=== PATIENT | male | born 1975 | race Caucasian/White ===

== ENCOUNTER 2024-07-11 22:24 | Emergency (ER) | payer OTHER, SELFPAY ==
[2024-07-11 22:32] VITALS: BP 129/80; PULSE 60; RESP 16; TEMP 36.8; O2SAT 98; BMI 21.6
--- NOTE | 2024-07-11 22:32 | ED.BACK ---
HPI - Back Pain/Injury General Time Seen by Provider: 22:32 Date Seen: 07/11/24 Chief Complaint: Back Injury/Pain Stated Complaint: flank pain Time Seen by Provider: 07/11/24 22:32 Source: patient, RN notes reviewed and old records reviewed Mode of arrival: ambulatory Limitations: no limitations History of Present Illness HPI Narrative: 49-year-old male who comes in today with abdominal pain. Patient notes bandlike pain around his upper abdomen and back all day today, was able to get to sleep but then the pain will come from sleep. Nausea with some dry heaves, no diarrhea. No urinary symptoms. No fever chills. Prior gastric bypass, does not think they took his gallbladder out at that time. Took some Zofran prior to arrival. Denies hematuria or dysuria. Related Data Home Medications ?Medication ?Instructions ?Recorded ?Confirmed No Known Home Medications 07/11/24 07/11/24 Allergies Allergy/AdvReac Type Severity Reaction Status Date / Time droperidol Allergy Severe Anaphylaxis Verified 07/11/24 22:35 Penicillins Allergy Unknown Verified 07/11/24 22:35 Exam Narrative: Exam Narrative: General: Well-developed and well-nourished, no acute distress Head: Atraumatic and normocephalic Eyes: Pupils are equal reactive, extraocular motions intact, conjunctiva clear ENT: External nose and ears are normal, posterior pharynx without erythema or exudate Neck: No midline cervical tenderness, full spontaneous range of motion the neck, trachea midline, no adenopathy Heart: Regular rate and rhythm no murmurs or thrills Lungs: Clear to auscultation bilaterally without wheezes or crackles Abdomen: Soft, diffuse upper abdominal tenderness worse in the epigastrium, nondistended with active bowel sounds Musculoskeletal: No tenderness, deformity, or edema Neurologic: Awake, alert, and oriented x3, no gross focal neurologic deficits, cranial nerves intact as tested Psych: Mood and affect are appropriate Skin: No rashes Const: Vital Signs, click to edit/add: Vital Signs - 24 hr 07/11/24 22:32 Temperature 98.2 F Pulse Rate [Pulse Oximeter] 60 Respiratory Rate 16 Blood Pressure [Ri ght Upper Arm] 129/80 Pulse Oximetry 98 Oxygen Delivery Me thod Room Air Course Course ED Course: Reviewed most recent telemedicine visit from June 20 for anxiety related to multiple medical diagnoses, including prior gastric bypass, depression. Patient with prior gastric bypass, Le fundoplication, TORE procedure on March 31 at [facility]. Patient presents with diffuse upper abdominal pain, nausea and dry heaves tonight. On exam, vital is stable, appears comfortable, epigastric tenderness. Labs and CT scan are ordered. Reevaluation(s) Time of Reevaluation #1: 23:26 Reevaluation #1: Labs and fell interpreted by me with normal CBC, urinalysis without evidence for infection. CT abdomen pelvis independently interpreted by me demonstrates small amount of ascites, no free air. Time of Reevaluation #2: 23:46 Reevaluation #2: Reviewed radiology interpretation CT scan: IMPRESSIONS: 1. Diffuse ground-glass infiltration of the mesentery is present with increased amounts of fat present within the mesentery, displacing small-bowel loops into the anterior and lateral left flank. The differential diagnosis includes mesenteric panniculitis, liposarcoma, or treated lymphoma. 2. A small amount of pelvic ascites is present. Time of Reevaluation #3: 00:04 Reevaluation #3: See updated patient with findings and plan, stable for discharge. Vital Signs Vital signs: Initial Vital Signs Temperature 98.2 F 07/11/24 22:32 Temperature Source Temporal Artery Scan 07/11/24 22:32 Pulse Rate 60 07/11/24 22:32 Respiratory Rate 16 07/11/24 22:32 Blood Pressure 129/80 07/11/24 22:32 Blood Pressure Mean 96 07/11/24 22:32 Blood Pressure Position Sitting 07/11/24 22:32 Pulse Oximetry 98 07/11/24 22:32 Oxygen Delivery Method Room Air 07/11/24 22:32 Vital Signs Temperature 98.2 F 07/11/24 22:32 Pulse Rate 60 07/11/24 22:32 Respiratory Rate 16 07/11/24 22:32 Blood Pressure 129/80 07/11/24 22:32 Pulse Oximetry 98 07/11/24 22:32 Oxygen Delivery Method Room Air 07/11/24 22:32 Temperature 98.2 F 07/11/24 22:32 Pulse Rate 60 07/11/24 22:32 Respiratory Rate 16 07/11/24 22:32 Blood Pressure 129/80 07/11/24 22:32 Pulse Oximetry 98 07/11/24 22:32 Oxygen Delivery Method Room Air 07/11/24 22:32 MDM - Back Pain/Injury Lab Data Labs: Lab Results 07/11/24 07/11/24 Range/Units 22:30 22:54 WBC 8.30 (4.50-11.00) K/uL RBC 4.23 L (4.30-5.90) m/uL Hgb 13.3 L (13.5-17.5) gm/dL Hct 37.7 (37.0-53.0) % MCV 89 (80-100) fL MCH 31 (26-34) pg MCHC 35 (32-36) gm/dL RDW Coeff of Gigi 12.7 (11.5-15.5) % Plt Count 194 (140-440) K/uL Neut % (Auto) 81.3 H (42.0-72.0) % Lymph % (Auto) 11.0 L (20-44) % [place] % (Auto) 5.5 (0.0-11.0) % Eos % (Auto) 1.2 (0.0-7.0) % Baso % (Auto) 0.6 (0.0-3.0) % Neut # (Auto) 6.70 (1.7-7.0) K/uL Lymph # (Auto) 0.90 (0.90-2.90) K/uL [place] # (Auto) 0.50 (0.00-0.90) K/UL Eos # (Auto) 0.10 (0.00-0.50) K/uL Baso # (Auto) 0.05 (0.00-0.30) K/uL Abs Immat Gran (auto) 0.03 (0.00-0.30) K/uL Imm/Tot Granulo (auto) 0.4 % Sodium 138 (135-149) mmol/L Potassium 4.2 (3.6-5.1) mmol/L Chloride 106 (96-114) mmol/L Carbon Dioxide 23 (20-32) mmol/L Anion Gap 9 (7-15) mEq/L BUN 20 (7-30) mg/dL Creatinine 0.8 (0.5-1.5) mg/dL Estimated Creat Clear 92.14 Estimated GFR 108 ml/min Glucose 92 (60-115) mg/dL Calcium 9.1 (8.4-10.6) mg/dL Magnesium 2.0 (1.5-2.6) mg/dL Total Bilirubin 1.1 (0.1-1.5) mg/dL Direct Bilirubin 0.3 (0.0-0.5) mg/dL AST 36 H (12-35) U/L ALT 48 (4-50) U/L Alkaline Phosphatase 57 (40-150) U/L Total Protein 7.1 (6.0-8.3) g/dL Albumin 4.5 (3.3-5.0) g/dL Lipase 174 (23-300) U/L Urine Color Yellow (Yellow) Urine Appearance Clear (Clear) Urine pH 6.0 (5.0-8.5) Ur Specific [place] 1.020 (1.000-1.030) Urine Protein Negative (Negative) Urine Glucose (UA) Negative (Negative) Urine Ketones Negative (Negative) Urine Blood Negative (Negative) Urine Nitrite Negative (Negative) Urine Bilirubin Negative (Negative) Urine Urobilinogen 0.2 (0.2-1.0) Ur Leukocyte Esterase Negative (Negative) Urine RBC 0-2 (0-2) Urine WBC 0-2 (0-5) Ur Squamous Epith Cells Few (None-Few) Urine Bacteria None (None) Discharge Plan Discharge Clinical Impression: Mesenteric panniculitis Patient Disposition: Home, Self-Care Condition: Stable Additional Instructions: Your CT scan today shows inflammation of the mesentery, the tissue that helps hold intestines in place in the abdomen. Call your surgeon in the morning to discuss further treatment. Start taking a stool softener such as Colace/docusate while your taking pain medications If your pain returns or your having uncontrolled vomiting, fevers, or other concerns, follow-up at at the hospital where you have had your prior abdominal surgeries Activity Level: Activity as Tolerated Discharge Diet: Regular Prescriptions: No Action No Known Home Medications Follow Up/Referrals: Provider,Not a Local [Primary Care Provider] - Stand Alone Forms: [employer] Info Instructions
--- NOTE | 2024-07-11 22:53 | CRLHL7_ITS ---
For Patients: As a result of the Century Cures Act, medical imaging exams and procedure reports are released immediately into your electronic medical record. You may view this report before your referring provider. If you have questions, please contact your health care provider. INDICATION: Flank pain, back pain, epigastric pain, upper abdominal pain TECHNIQUE: CT Abdomen and pelvis with i.v. contrast. Coronal and sagittal reformats were obtained. CONTRAST: 64 mL Isovue 370 COMPARISON: None FINDINGS: Lower chest: Unremarkable. Liver: Unremarkable. Spleen: Unremarkable. Pancreas: Unremarkable. Gallbladder: Unremarkable. Kidney: Unremarkable. No kidney or ureteral stones or obstruction seen. Adrenal: Unremarkable. Bowel: Previous gastric bypass surgery is noted. Diffuse ground-glass infiltration of the mesentery is present with increased amounts of fat present within the mesentery, displacing small-bowel loops into the anterior and lateral left flank. The appendix is not identified. Vascular: Unremarkable. Lymph: Unremarkable. Peritoneum: Unremarkable. No pneumoperitoneum is seen. A small amount of pelvic ascites is present. Pelvis: Mild prostatic enlargement is seen. Soft tissue: Unremarkable. Bone: Unremarkable for age. IMPRESSIONS: 1. Diffuse ground-glass infiltration of the mesentery is present with increased amounts of fat present within the mesentery, displacing small-bowel loops into the anterior and lateral left flank. The differential diagnosis includes mesenteric panniculitis, liposarcoma, or treated lymphoma. 2. A small amount of pelvic ascites is present. Dictated by Ugo Jamil MD @ 07/11/2024 11:43:56 PM Please note that all CT scans at this facility use dose modulation, iterative reconstruction, and/or weight-based dosing when appropriate to reduce radiation dose to as low as reasonably achievable. Dictated by: Ugo Jamil MD @ 07/11/2024 23:44:01 (Electronically Signed)
[2024-07-11 22:55] LABS: Appearance Urine Clear (Clear); Bilirubin Urine Negative (Negative); Blood Urine Negative (Negative); Color Urine Yellow (Yellow); Glucose Urine Negative (Negative); Ketones Urine Negative (Negative); Leukocyte Esterase Urine Negative (Negative); Nitrite Urine Negative (Negative); Protein Urine Negative (Negative); Urobilinogen Urine 0.2 (0.2-1.0)
--- OUTSIDE RECORDS SUMMARY | 2024-07-11 22:56 | XMS_ITS | Encounter Summary ---
Author Organization [facility] Address [address] [place] [address] Care Team Providers Care Chief Of Harbor Patrol Name Role Phone Buster Brush PA-C Primary Care Provider [phone]- [phone] Encounter Details Date Type Department Care Team (Late st Contact Info) Description 01/20/2014 Scanned History External to Transferred Record, Provider [facility] Social History Tobacco Use Types Packs/Day Years Used Date Smoking Tobacco: Never Assessed Sex and Gender Information Value Date Recorded Sex Assigned at Not on file Legal Sex Male 4:49 AM CDT Gender Identity Not on file Sexual Orientation Not on file documented as of this encounter Plan of Treatment Not on file documented as of this encounter Visit Diagnoses Not on filedocumented in this encounter Care Teams Chief Of Harbor Patrol Relationship Specialty Start Date End Date Buster Brush PA-C [address] [place] [address] PCP - General Physician Art Glass Designer 08/21/20 documented as of this encounter
--- OUTSIDE RECORDS SUMMARY | 2024-07-11 22:56 | XMS_ITS | Encounter Summary ---
Author Organization [facility] Address [address] [place] [address] Care Team Providers Care Furnace Tapper Name Role Phone Huma Mathur M.D. Primary Care Provider [phone]- [phone] Reason for Visit * Reason Comments Med Refill Encounter Details Date Type Department Care Team (Late st Contact Info) Description 04/28/2024 Refill Division of Gastroenterology in [place], [place] [address] [place] [phone] Darlene Loera MPAS, P.A.-C. [address] [place] [phone] Med Refill Social History Tobacco Use Types Packs/Day Years Used Date Smoking Tobacco: Never Smokeless Tobacco: Former Chew Alcohol Use Standard Drinks/Week Comments Not Currently 0 (1 standard drink = 0.6 oz pur e alcohol) [facility] Utilities Answer Date Recorded In the past 12 months has [employer], gas, oil, or water adjust threatened to shut off services in your home? No 08/10/2023 PHQ-2 Answer Date Recorded PHQ-2 Score 2 04/19/2024 Exercise Vital Sign Answer Date Recorde d On average, how many days pe r week do you engage in moderate to strenuous exercise (like a brisk walk)? 3 days Minutes of Exercise per Session Not on file 08/10/2023 Hunger Vital Sign Answer Date Recorded Within the past 12 months, y ou worried that your food would run out before you got the money to buy more. Never true 08/10/19 24 Within the past 12 months, t he food you bought just didn't last and you didn't have money to get more. Never true 08/10/2023 PRAPARE - Transportation Answer Date Re corded In the past 12 months, has l ack of transportation kept you from medical appointments or from getting medications? No 05/2023 In the past 12 months, has l ack of transportation kept you from meetings, work, or from getting things needed for daily living? No 08/10/2023 Depression Answer Date Recor ded PHQ-9 Total Score (max 27) 2 04/19 Nutrition Answer Date Recorded On average, how many serving s of fruits and vegetables do you eat per day (serving size is equal to 1 cup or approximately the size of a tennis ball)? 3-5 08/10/2023 Dental Answer Date Recorded Dental: Regular Dentist Yes 08/10/19 Employment Answer Date Recorded Employment status Employed and actively working without restrictions 08/10/2023 Housing Stability Answer Date Recorded What is your living situation today? I have a [facility] place to live 08/10/2023 Sex and Gender Information Value Date Recorded Sex Assigned at Male 08/10/2023 6:15 PM CDT Legal Sex Male 2:06 PM [employer] Gender Identity Male 08/10/2023 6:15 PM CDT Sexual Orientation Straight 08/10/2023 6: 15 PM CDT documented as of this encounter Plan of Treatment Not on file documented as of this encounter Visit Diagnoses Not on filedocumented in this encounter Additional Health Concerns Assessment Noted Time PHQ-9 Depression Total Score: 2 04/19/19 25 7:25 AM COTTON [employer] P[employer]ER documented as of this encounter Care Teams Furnace Tapper Relationship Specialty Start Date End Date Huma Mathur M.D. [address] [place] [phone] PCP - General Family Medicine 02/02/24 documented as of this encounter
--- OUTSIDE RECORDS SUMMARY | 2024-07-11 22:56 | XMS_ITS ---
Author Organization [facility] Address [address] [place] [address] Care Team Providers Care Certified Orthotist Practice Manager Name Role Phone Huma Mathur M.D. Primary Care Provider [phone]- [phone] Bariatrics Program Status:Closed (Closed) Start date:01/13/2024 End date:05/31/2024 Close reason:Incorrect referral Continued Care and Services Coordination
--- OUTSIDE RECORDS SUMMARY | 2024-07-11 22:56 | XMS_ITS | Clinical Summary ---
Author Organization [facility] hospital Address [address] [facility] [place] [address] Care Team Providers Care Color Blender Name Role Phone Buster Brush PA-C Primary Care Provider [phone] Source Comments You are receiving this document as you are listed as the primary care provider,follow-up provider, or the patient has been referred to you for consultation.This is in compliance with the Medicare and[facility] EHR Incentive Program,which states Providers who transition their patient to another setting of careor provider of care or refers their patient to another provider of care shouldprovide summary care record for each transition of care or referral. [facility] Allergies Active Allergy Reactions Criticality Noted Date Comments Droperidol Other, see comments 02/12/2023 Penicillins Unknown 02/24/2020 Medications * This document contains information received from the source organization and may not represent a complete record from that organization. ferrous sulfate 325 (65 Fe) MG tablet Take 1 Tablet (325 mg) by mouth daily with breakfast. 90 Tablet 3 3 Active ascorbic acid (VITAMINC) 500 MG tablet Take 1 Tablet (500 mg) by mouth daily. 90 Tablet 3 3 Active blood glucose (ACCU-CHEK SMARTVIEW) test stripIndications: Reactive hypoglycemia (HRC) Use to test two times a day. 100 Strip 11 4 Active lancetsIndication s:Reactive hypoglycemia (HRC) Use 1 Each to test two times a day. 100 Each 11 4 Active multivitamin (THERAGRAN) tablet Take 1 Tablet by mouth daily. Active hydrOXYzine HCl (ATARAX) 25 MG tabletIndications :Anxiety (HRC) TAKE 1 TABLET(25 MG) BY MOUTH THREE TIMES DAILY NEEDED FOR ANXIETY 30 Tablet 4 Active amitriptyline (ELAVIL) 10 MG tabletIndications :Anxiety (HRC),Current mild episode of major depressive disorder without prior episode (HRC) TAKE 1 TO 5 TABLETS(10 TO 50 MG) BY MOUTH DAILY AT BEDTIME 150 Tablet 2 4 Active Continuous Glucose Sensor (FREESTYLE ERNIE 3 PLUS SENSOR) MISCIndications:H ypoglycemia (HR) USE DIRECTED FOR CONTINUOUS BLOOD GLUCOSE MONITORING. REPLACE SENSOR EVERY 15 DAYS 7 Each 3 4 Active Active Problems Patient Care Coordination No te Formatting of this note migh t be different from the original. [facility] Care Management Hansel Russ Is meeting his goals and self-reliant. Planned surgery is 03/04/2022. Member has Case management phone# if questions/resources or support needed prior to or after surgery. Case closed/self reliant. Member has completed advance directive and will bring to next appointment to have it scanned into EMR. Darcy Brink RN 01/27/2022, 11:22 AM [phone] [facility] Care Management [facility] and Case Management: Hansel Russ identified due to planned gastric bypass and hiatal hernia repair surgery on 03/04/2022. Working with patient towards understanding of benefits, avoiding dehydration and following bariatric education manual. My role is to be available to provide in-between visit support, reinforcement of the plan of care, additional education and resources, and assistance navigating health plan benefits. Darcy Brink RN 12/24/2021, 5:45 PM [phone] Problem Noted Date Diagnosed Date Adjustment disorder with mixed anxiety and depre ssed mood 03/31/2024 History of multiple concussions 02/19/2023 Anxiety 01/27/2023 Severe episode of recurrent major depressive disorder, without psychotic features 01/27/2023 Spasm of abdominal muscles of right side 023 History of Miriam-en-Y gastric bypass 03/04/2022 Overview (03/04/2022): Robotic assisted laparoscopic takedown of Le fundoplication, recurrent hiatal hernia repair with mesh, Miriam-en-Y gastric bypass, upper endoscopy Intractable migraine with aura without status mi grainosus 10/26/2020 BONNIE (obstructive sleep apnea) 07/09/2020 Overview (07/07/2022): Setting: CPAP 14 cmH20 Supplied by: [facility] PSG done: 06-24-21 T [facility], 07-07-21 [facility] (Titration) RDI/SURAJ 59 Lowest O2 Sat: 79% Benign neoplasm of descending colon 12/15/2017 Polyp of colon 11/19/2017 Hemorrhoids 11/19/2017 Chronic diarrhea 10/21/2017 Migraine headache 11/19/2016 Patellofemoral disorders, right knee Resolved Problems Problem Noted Date Diagnosed Date Resolved Date History of fundoplication 04/01/2021 Essential (primary) hypertension 07/09/2020 07/17/2023 Noninfectious gastroenteritis 10/21/2017 03/04/2022 Neck pain 12/22/2016 02/26/2017 Dizziness 12/22/2016 02/26/2017 GERD (gastroesophageal reflux disease) 04/08/2016 08/20/2022 Obesity (BMI 30-39.9) 2024 Overview (03/31/2024): This problem was marked as resolved by a user in a SmartForm. Immunizations Immunization Administration Dates Next Due DT Ped 09/26/1986 DTP 05/31/1986, 6,1974,1974,1974 Flu Vac Preserv Free (3+yrs) 01/24/2008,01/18/20 05 Fluzone Qiv Multidose Vial 0 .25 (6-35 Mos) 12/12/2014,01/06/2014 Influenza LAIV3 2-49 years (Flumist) 11/27/2008 MMR 02/13/1988 Moderna Monovalent 12+ 03/06/2021,06/06/2020,04/2020 OPV, Trivalent (Orimune or tOPV) 987,1974,1974,1974 Td, Preservative Free 10/07/1998 Tdap 05/18/2017,01/18/2008 Family History Medical History Relation Name Comments Diabetes, Type II Father Obesity Father Obesity Mother Relation Name Status Comments Father Alive Mother Alive Maternal Grandfather (Age 65) Maternal Grandmother (Age 56) Paternal Grandfather (Age 64) Paternal Grandmother (Age 94) Sister Alive Social History Tobacco Use Types Packs/Day Years Used Date Smoking Tobacco: Never Smokeless Tobacco: Never Alcohol Use Standard Drinks/Week Comments Not Currently 0 (1 standard drink = 0.6 oz pur e alcohol) PHQ-2 Answer Date Recorded PHQ-2 Score 2 03/30/2024 Sex and Gender Information Value Date Recorded Sex Assigned at Not on file Legal Sex Male 4:49 AM CDT Gender Identity Not on file Sexual Orientation Not on file 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 Not on file Not on file Not on chiquita e Last Filed Vital Signs Vital Sign Reading Time Taken Comments Blood Pressure 115/78 07/22/2023 2:45 PM CDT Pulse 62 07/22/2023 2:45 PM CDT Temperature 36.8 C (98.2 F) 03/05/2023 11:50 AM RACE BOARD ATTENDANT Respiratory Rate 14 07/22/2023 2:45 PM CDT Oxygen Saturation 100% 07/22/2023 2:45 PM CDT Inhaled Oxygen Concentration - - Weight 61.7 kg (136 lb) 07/29/2023 12:54 PM CDT Height 167.6 cm (5' 6) 07/29/2023 12:54 PM CDT Body Mass Index 21.95 07/29/2023 12:54 PM CDT Plan of Treatment Health Maintenance Due Date Last Done Comments PSA Screening Discussion 1975 HepB Vaccine (1) 1993 COVID-19 Vaccine ( season) 2023 03/06/2021, 06/06/2020, 05/08/2020 Adult Preventive Visit 03/30/2024 03/30/2023 Pneumococcal Vaccine 50+ Yrs (1 of 1 - PCV) 2024 Zoster/Shingles Vaccine (1 of 2) 2024 Prediabetes: HGBA1C 06/07/2024 06/08/2023, 04/02/2023, 09/12/2021, Additional history exists Influenza Vaccine (Season Ended) 2024 12/12/2014, 01/06/2014, 11/27/2008, Additional history exists DTaP/Tdap/Td Vaccine (10 - Tdap) 05/19/2027 05/18/2017, 01/18/2008, 10/07/1998, Additional history exists Cholesterol 04/02/2028 04/02/2023, 07/0 09/2021, 07/10/2020 Colonoscopy 03/05/2030 03/05/2023 IPV (Polio) Vaccine Completed 05/31/1986, 1974, 1974, Additional history exists HIV Screening (Preventive Services) Completed 04/02/2023 Hep C Screening (Preventive Services) Completed 04/02/2023 HepA Vaccine Aged Out No longer eligi ble based on patient's age to complete this topic Hib Vaccine Aged Out No longer eligi ble based on patient's age to complete this topic MCV4 Vaccine Aged Out No longer eligi ble based on patient's age to complete this topic Meningococcal B Vaccine Aged Out No l onger eligible based on patient's age to complete this topic Medical Devices Implanted Type Area Assistant Food Service Director Device Identifier Shelf Expiration Date Model / Serial / Lot Mesh Bio-A - [id number] Implanted:Qty : 1 on 03/04/2022 by Jadiel Goff MD at [facility] DEVICE N/A: ABD[employer]EN [employer] 10/21/2024 [id number] / [id number] / Procedures Procedure Name Priority Date/Time Associated Diagnosis Comments HGB A1C Routine 06/08/2023 9:00 AM CDT Hypoglycemia after GI (gastrointestinal) surgery HIV 1/2 AG/AB 4TH GEN Routine 04/02/2023 9:35 AM RACE BOARD ATTENDANT Encounter for screening for human immunodeficiency virus (HIV) HEPATITIS C ANTIBODY, WITH REFLEX Routine 04/02/2023 9:35 AM RACE BOARD ATTENDANT Need for hepatitis C screening test LIPID PANEL & DIRECT LDL (IF NEEDED) Routine 04/02/2023 9:35 AM RACE BOARD ATTENDANT Lipid screening ENDOSCOPY, COLON, SCREENING/DIAGNOS TIC Routine 03/05/2023 11:10 AM RACE BOARD ATTENDANT Chronic diarrhea from Last 3 Months or Most Recently Relevant to Health Maintenance Results * Hgb A1C (06/08/2023 9:00 AM CDT) Hemoglobin A1C 4.5 <=5.6 % 06/08/2023 11:48 AM CDT [facility] Estimated Average Glucose (Calc) 82 < 117 mg/dL 06/08/2023 11:48 AM CDT [facility] Comment:Estimated average gl ucose (eAG) converts A1c into glucose units (mg/dL) and estimates average glucose over the past approximately 3 months. The eAG reference interval (<117 mg/dL) corresponds to an A1c of <5.7%. Blood Venipuncture / Unknown 06/08/2023 9:00 AM CDT 06/08/2023 9:00 AM CDT Emeterio Rousseau MD LAB_1 Final R esult Performing Organization Address City/[facility]/ZIP Co de Phone Number [facility] [address] * HIV 1/2 Ag/Ab 4th Generation (04/02/2023 9:35 AM RACE BOARD ATTENDANT) HIV 1/2 Antigen/Antib jed (4th generation) Negative (Non Reactive) Negative (Non Reactive) 04/02/2023 1:55 PM RACE BOARD ATTENDANT [facility] Comment:HIV-1 p24 Antigen an d HIV-1/HIV-2 Antibody not detected Blood Venipuncture / Unknown 04/02/2023 9:35 AM RACE BOARD ATTENDANT 04/02/2023 9:35 AM RACE BOARD ATTENDANT Tanisha Julien PA-C LAB_1 Final Resul t [facility] [address] * Lipid Panel and Direct LDL(If Needed) (04/02/2023 9:35 AM RACE BOARD ATTENDANT) Cholesterol 151 0 - 199 mg/dL 04/02/2023 11:00 AM [facility] [address] [facility] Triglyceride 70 <=149 mg/dL 04/02/2023 11:00 AM RACE BOARD ATTENDANT [facility] [address] [facility] HDL Cholesterol 64 >=40 mg/dL 11:00 AM [facility] [address] [facility] LDL, Calculated 73 <130 mg/dL 11:00 AM RACE BOARD ATTENDANT [facility] [address] [facility] Non HDL Chol, Calculated 87 <=159 mg/dL 04/02/2023 11:00 AM [facility] [address] [facility] Cholesterol/HDL Ratio 2.4 <=5.0 04/02/2023 11:00 AM [facility] [address] [facility] Hours Fasting 0.0 8 - 12 Hours 04/02/2023 11:00 AM [facility] [address] [facility] Comment:Patient has indicate d a non-fasting status. Blood Venipuncture / Unknown 04/02/2023 9:35 AM RACE BOARD ATTENDANT 04/02/2023 9:35 AM RACE BOARD ATTENDANT us Tanisha Julien PA-C LAB_1 Final Resul t Performing Organization Address City/State/[facility] de Phone Number [facility] [address] [facility] [address] [place] [address], [facility] [phone] * Hepatitis C Antibody, with Reflex (04/02/2023 9:35 AM RACE BOARD ATTENDANT) Hepatitis C Antibody Negative (Non Reactive) Negative (Non Reactive) 04/02/2023 1:55 PM RACE BOARD ATTENDANT [facility] Comment:Antibodies to HCV no t detected. Does not exclude the possiblity of exposure to HCV. Blood Venipuncture / Unknown 04/02/2023 9:35 AM RACE BOARD ATTENDANT 04/02/2023 9:35 AM RACE BOARD ATTENDANT us Tanisha Julien PA-C LAB_1 Final Resul t [facility] [address] [place] [address], [facility] * Endoscopy, colon, diagnostic (03/05/2023 11:10 AM RACE BOARD ATTENDANT) Anatomical Region Laterality Modality Other 03/05/2023 11:1 0 AM RACE BOARD ATTENDANT Narrative 03/05/2023 11:10 AM RACE BOARD ATTENDANT Patient Name: Hansel Russ Procedure Date: 03/05/2023 11:10 AM Date of : 1975 Admit Type: Outpatient Age: 47 Gender: Male Note Status: Finalized Attending MD: Mariel Mauricio MD, Procedure: Colonoscopy Indications: Clinically significant diarrhea of unexplained origin Providers: Mariel Mauricio MD, Leann Tapia RN Referring MD: Calvin Potts MD Medicines: Propofol per Anesthesia Complications: No immediate complications. Procedure: After I obtained informed consent, the scope was passed under direct vision. Throughout the procedure, the patient's blood pressure, pulse, and oxygen saturations were monitored continuously. The [id number] was introduced through the anus and advanced to 7 cm into the ileum. The colonoscopy was performed without difficulty. The patient tolerated the procedure well. The quality of the bowel preparation was good. Anatomical landmarks were photographed. Findings: The perianal and digital rectal examinations were normal. The terminal ileum appeared normal. Normal mucosa was found in the entire colon. Biopsies for histology were taken with a cold forceps from the entire colon for evaluation of microscopic colitis. The entire examined colon appeared normal on direct and retroflexion views. Impression: - The examined portion of the ileum was normal. - Normal mucosa in the entire examined colon. Biopsied. - The entire examined colon is normal on direct and retroflexion views. Recommendation: - Discharge patient to home. - Await pathology results. - Repeat colonoscopy in 7 years for surveillance (history of tubular adenoma). - Return to GI clinic. Procedure Code(s): --- Professional --- 07991, Colonoscopy, flexible; with biopsy, single or multiple Diagnosis Code(s): --- Professional --- R19.7, Diarrhea, unspecified CPT copyright 2021 [employer]. All rights reserved. The codes documented in this report are preliminary and upon him coder review may be revised to meet current compliance requirements. Mareil Mauricio MD 03/05/2023 11:48:50 AM This document has been electronically signed. Number of Addenda: 0 Note Initiated On: 03/05/2023 11:10 AM Endoscopy Report Procedure Note Mariel Mauricio MD - 03/05/2023 Patient Name: Hansel Russ Procedure Date: 03/05/2023 11:10 AM Date of : 1975 Admit Type: Outpatient Age: 47 Gender: Male Note Status: Finalized Attending MD: Mariel Mauricio MD, Procedure: Colonoscopy Indications: Clinically significant diarrhea of unexplained origin Providers: Mariel Mauricio MD, Leann Tapia RN Referring MD: Calvin Potts MD Medicines: Propofol per Anesthesia Complications: No immediate complications. Procedure: After I obtained informed consent, the scope was passed under direct vision. Throughout the procedure, the patient's blood pressure, pulse, and oxygen saturations were monitored continuously. The [id number] was introduced through the anus and advanced to 7 cm into the ileum. The colonoscopy was performed without difficulty. The patient tolerated the procedure well. The quality of the bowel preparation was good. Anatomical landmarks were photographed. Findings: The perianal and digital rectal examinations were normal. The terminal ileum appeared normal. Normal mucosa was found in the entire colon. Biopsies for histology were taken with a cold forceps from the entire colon for evaluation of microscopic colitis. The entire examined colon appeared normal on direct and retroflexion views. Impression: - The examined portion of the ileum was normal. - Normal mucosa in the entire examined colon. Biopsied. - The entire examined colon is normal on direct and retroflexion views. Recommendation: - Discharge patient to home. - Await pathology results. - Repeat colonoscopy in 7 years for surveillance (history of tubular adenoma). - Return to GI clinic. Procedure Code(s): --- Professional --- 36328, Colonoscopy, flexible; with biopsy, single or multiple Diagnosis Code(s): --- Professional --- R19.7, Diarrhea, unspecified CPT copyright 2021 [employer]. All rights reserved. The codes documented in this report are preliminary and upon him coder review may be revised to meet current compliance requirements. Mariel Mauricio MD 03/05/2023 11:48:50 AM This document has been electronically signed. Number of Addenda: 0 Note Initiated On: 03/05/2023 11:10 AM Endoscopy Report Calvin Potts MD [facility] PROCEDURE ORDERABLES Final Result from Last 3 Months or Most Recently Relevant to Health Maintenance Insurance SELF INSURED SELF INSURED Advance Directives Documents on File Type Date Recorded Patient Degreasing Solution Reclaimer Expl anation HEALTHCARE DIRECTIVE 01/20/2022 HEALTHC ARE DIRECTIVE 01/20/2022 * Full Code (Latest Code Status on File) Date Activated Date Inactivated Comments 03/13/2022 1:12 AM 03/13/2022 4:15 PM * Full Code Date Activated Date Inactivated Comments 03/04/2022 3:48 PM 03/06/2022 2:47 PM Care Teams Color Blender Relationship Specialty Start Date End Date Buster Brush PA-C [address] [place] [address] PCP - General Physician Communications Tower Climber 08/21/20
--- OUTSIDE RECORDS SUMMARY | 2024-07-11 22:56 | XMS_ITS | Encounter Summary ---
Author Organization [facility] Address [address] [place] [address] Care Team Providers Care Toe Puller Name Role Phone Buster Brush PA-C Primary Care Provider Encounter Details Date Type Department Care Team (Late st Contact Info) Description 08/05/2016 Scanned History External to Transferred Record, Provider [facility] Social History Tobacco Use Types Packs/Day Years Used Date Smoking Tobacco: Never Alcohol Use Standard Drinks/Week Comments Yes 0 (1 standard drink = 0.6 oz pur e alcohol) occassional Sex and Gender Information Value Date Recorded Sex Assigned at Not on file Legal Sex Male 4:49 AM CDT Gender Identity Not on file Sexual Orientation Not on file documented as of this encounter Plan of Treatment Not on file documented as of this encounter Visit Diagnoses Not on filedocumented in this encounter Care Teams Toe Puller Relationship Specialty Start Date End Date Buster Brush PA-C [address] [place] [address] PCP - General Physician Lens Engraver 08/21/20 documented as of this encounter
--- OUTSIDE RECORDS SUMMARY | 2024-07-11 22:56 | XMS_ITS | Encounter Summary ---
Author Organization [facility] Address [address] [place] [address] Care Team Providers Care Batch Plant Operator Name Role Phone Huma Mathur M.D. Primary Care Provider [phone]- [phone] Reason for Visit * Outpatient (Routine) - Closed Specialty Diagnoses / Procedures Referred By Contac t Referred To Contact Integrative Medicine Diagnoses Anxiety Disorder Unspecified Cally Lorenzo APRN, C.N.P., D.N.P. [address] [place] [phone] Phone: tel: fax: [facility] Referral ID Status Reason Start Date Expiration Date Visits Re quested Visits Authorized [id number] Closed 03/17/2024 09/16/2025 1 1 Encounter Details Date Type Department Care Team (Late st Contact Info) Description 06/20/2024 5:00 PM CDT Telemedicine Integrative Medicine and Health in [place], [place] [address] [place] [id number] Cinthya Mendoza M.A., L.P.C.C. [address] [place] [phone] Anxiety Disorder Unspecified Social History Tobacco Use Types Packs/Day Years Used Date Smoking Tobacco: Never Smokeless Tobacco: Former Chew Quit: 03/09/2001 Alcohol Use Standard Drinks/Week Comments Not Currently 0 (1 standard drink = 0.6 oz pur e alcohol) [facility] Utilities Answer Date Recorded In the past 12 months has th e electric, gas, oil, or water [employer] threatened to shut off services in your [...] your living situation today? 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 - 06/20/2024 5:00 PM CDT Referral Source: Cally Lorenzo APRN, C.N.P., D.N.P. [address] [place] [address] SUBJECTIVE Chief Complaint: Mr. Russ is being seen in the Integrative Medicine and Health, Section of General Internal Medicine. History of Presenting Illness: Mr. Russ is a pleasant 49 y.o. male presenting for an individual Stress Management and Resiliency Training (SMART) consultation, conducted via real-time audio/video technology, at [place], [place] site to the patient in the patient's home. Mr. 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 See Dr. Huma Mathur's excellent note of March 18, 2024. 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 See Dr. Raquel Mancuso's excellent note of April 15, 2024. Mr. Russ said he is undergoing EMDR with his psychologist to help him with PTSD. Mr. Russ his first in 2011 after 10 years of marriage. He said the divorce was very difficult. They had two daughters from this relationship: 25-year-old Anni and 27-year-old Cori. He is estranged from his oldest daughter. He his second Suzie in 2018 and now hehas two stepsons. Mr. Russ appears motivated to incorporate his resiliency skills into daily practice. Review of Systems Appearance/Behavior: Well groomed, Good eye contact. No abnormal movements noted. Consciousness/Orientation: Alert. Oriented to person, place, date, and time. Cognition/Memory: Demonstrates good recent and remote memory through conversation and history. Cooperative/Reliability: Cooperative, reliable informant. Mood/Affect: Anxious mood with full range affect. Speech/Language: Regular rate, rhythm, volume, and tone. Thought form: Linear, goal-directed, and associations are clear and connected. Thought content: No delusions described or elicited, no other abnormalities of thought content. Perception: No hallucinations, illusions, or other perceptual disturbances. Attention/Concentration: No apparent abnormalities in attention or concentration. Knowledge: Knowledge base within normal limits. Abstraction: Abstraction abilities within normal limits. Judgment: Intact. Insight/Motivation: Good insight/motivation. Suicidality/Assaultiveness: No suicidality, homicidality, or passive wish. ASSESSMENT / PLAN Stress Management and Resiliency Training (SMART) Mr. Russ is experiencing a high level of stress at the current time. We discussed a structured plan based on an understanding of neuroscience, including emerging literature on the brain???s default and focused modes. Mr. Russ???s stress can be triggered by (1) demand/resource imbalance, (where far more is expectedof a person than they can handle); (2) lack of control, and/or (3) lack of meaning. The best way tomanage stress is to identify stressors, eliminate them (if possible), focus on what can be controlled, and/or reframe the stressors. We discussed activities that engage our brain???s higher cortical centers, also known as the focused mode, by engaging higher order principles of gratitude, compassion, acceptance, higher meaning, and forgiveness. The goal of this program is that with adherence over time, a person's default network (with its irrational fears, prejudices, and bias) will be replaced by these higher principles, sothat even when on autopilot or engaging the default network, a person will effortlessly live fromtheir higher principles. With consistent practice of SMART over time, life can become an expressionof a person???s ???highest self???. I provided the patient with the Stress Management and Resiliency Training (SMART) Program handout [address] Kenn Muhammad and [place] Resilience Handout 1074-734. I also recommend Calm and ZIZO appsfor phone and computer use, as well as the book No More Sleepless Nights by Nicholas Salazar, Ph.D andYvonne Alberts, Ph.D. Some Suggested Daily Recommendations: a. Morning Gratitude: Mr. Russ is recommended to wake up every morning and begin each day practicing a gratitude exercise. This exercise was practiced together in clinic today. This involves deep abdominal breathing, visualizing the faces of the people you deeply care for and appreciate in your mind's eye (one of the people should include yourself). Inhale gratitude for them and exhale and send them your well wishes, a prayer, or your protection. b. Two Minute Rule or Radical Acceptance: We discussed building a habit of meeting family, friends, colleagues, or in-laws by first practicing the two minute rule. This involves delaying judgment by externalizing your attention and viewing the person in front of you with kind eyes. As you interact with them, send them your complete acceptance. Making eye contact helps. c. Silent Well-Wishes & Reclaiming Empty Moments: We discussed the third practice, which can beblended with routine practices or empty moments throughout the day, such as walking between medical appointments, waiting at the airport, driving in the car, or at a grocery check-out line. These moments can be reclaimed by silently sending well wishes to the people around you. This is a silent practice. You can look people in the eye but it is not a requirement. d. Higher Values: Resiliency (the ability to thrive when you wouldn???t be expected to thrive) involves grounding oneself in higher values including gratitude, compassion, acceptance, higher meaning,and forgiveness. These can be practiced by assigning one virtue to each day of the week (gratitude on Mondays, compassion on Tuesdays, acceptance on Wednesdays, higher meaning on , and forgiveness on Fridays). The weekends can be devoted to celebration (on Thursday) and reflection/prayer (on Thursday). Find creative ways or rituals to incorporate these principles into routine practice, including your self-care. Get curious and look for opportunities that come up at work, home, or in your relationships to practice the principle devoted to that day. Additional Suggested Resources Related to SMART: a. Online [facility] Resilient Living Program: https://resilience.[facility].org/ b. Dr. Kenn Muhammad's TEDx talk on the neuroscience of stress can be found here: www.resilientoption.com (a free resource). c. Dr. Muhammad has three books available on the topic: (1) The [facility] Guide to Stress-Free Living, (2) The [facility] Handbook for Happiness, and (3) SMART: The Four-Module Stress Management and Resilience Training Program d. Morning Gratitude: https://www.Nginx.com/results?search_query=morning+gratitude+geovani e. Calm and Energize: This free meditation by Dr. Muhammad, available online, allows you to re-energizewhen feeling fatigued at work or during the day. The meditation can be found at the following link: https://www.youtube.com/watch?v=GRUCbM2FLu8 Other Suggested Resources: 1. ???What Makes A Good Life? Lessons from the longest study on Happiness?? by Jamison Odonnell MD https://www.[employer]/talks/jamison_david_what_makes_a_good_life_lessons_from_t he_longest_study_on_happiness 2. ???The Happy Secret to Better Work?? by Irene Zuleta https://www.[employer]/talks/irene_forrest_the_happy_secret_to_better_work 3. ???The Power of Vulnerability?? by Heaven?? Jeffery, PhD https://www.[employer]/talks/marical_jeffery_on_vulnerability It was a privilege to be involved in Mr. Russ???s care. A follow-up has not been given at the current time. Please do not hesitate to contact me if there are any further questions. 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 [address] [place] [phone] PCP - General Family Medicine 02/02/24 documented as of this encounter
--- OUTSIDE RECORDS SUMMARY | 2024-07-11 22:56 | XMS_ITS | Clinical Summary ---
Author Organization [facility] Address [address] [place] [id number] Care Team Providers Care Manager Placement Name Role Phone Huma Mathur M.D. Primary Care Provider [phone]- [phone] Source Comments Patient records contain information from all sites at [facility]. For routine questions regarding patient records, call [phone] during business hours, M-F 8:00 AM - 5:00 PM Central Time. Record requests for emergency care only can be directed to [phone] at any time.[facility] Allergies Active Allergy Reactions Criticality Noted Date Comments Droperidol Extrapyramidal Sympt oms,Other (see comments) 02/12/2023 Penicillins Other (see comments) 02/24/2020 Medications * This document contains information received from the source organization and may not represent a complete record from that organization. FreeStyle Raul 3 Sensor device USE DIRECTED FOR CONTINUOUS BLOOD GLUCOSE MONITORING. REPLACE SENSOR EVERY 14 DAYS 08/02/19 24 Active cholecalciferol (Vitamin D3) 125 mcg (5,000 Unit) tablet Active cyanocobalamin (B-12 DOTS) 500 mcg tablet Active ferrous sulfate 325 mg (65 mg iron) tablet Take 325 mg by mouth. 09/02/19 23 Active glucagon 1 mg injection 05/15/19 24 Active hydrOXYzine (ATARAX) 25 mg tablet 05/11/19 24 Active iron,carbonyl-aby min C (Vitron-C) 65 mg iron- [address] tablet Active multivit-mins/iron /folic/lycop (CENTRUM MEN ORAL) A ctive BD Melita 2nd Gen Pen Needle 32 gauge x 5/32 needle INJECT 1 EACH SUBCUTANEOUSLY DAILY WITH PEN INJECTOR DEVICE 07/02/19 24 Active blood sugar diagnostic strips (Accu-Chek Guide test strips) 4 test daily. 400 test 3 01/19/20 24 025 Active lancets (Accu-Chek Softclix Lancets) Use as directed. 400 each 3 01/19/20 24 Active mirtazapine (Remeron) 30 mg tablet Take 1 tablet (30 mg total) by mouth at bedtime. 30 tablet 1 03/17/19 25 Active mirtazapine (Remeron SolTab) 30 mg disintegrating tablet Dissolve 1 tablet (30 mg total) in the mouth at bedtime. 30 tablet 1 03/18/19 25 Active ondansetron ODT (Zofran-ODT) 4 mg disintegrating tablet Dissolve 1 tablet (4 mg total) in the mouth every 8 (eight) hours as needed for vomiting or nausea. 20 tablet 03/31/19 25 Active omeprazole (PriLOSEC) [address] capsule Take 1 capsule (40 mg total) by mouth 2 (two) times a day before morning and evening meals. Open the capsule and sprinkle on applesauce or yogurt. 60 capsule 03/31/19 25 Active acetaminophen (TylenoL) 160 mg/5 mL liquid Take 20 mL (640 mg total) by mouth every 6 (six) hours as needed for pain. 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 Date Type Department Care Team Description 06/20/2024 5:00 PM CDT Telemedicine Integrative Medicine and Health in [address] [place] [address] Cinthya Mendoza M.A., L.P.C.C. Anxiety Disorder Unspecified 04/28/2024 Refill Division of Gastroenterology in [place], [place] [address] [place] [phone] Darlene Loera MPAS, P.A.-C. Med Refill 04/22/2024 Results Follow-Up Department of Dermatology in [place], [place] [address] [place] [phone] Chana Delacruz M.D. Dermatopathology 04/15/2024 3:00 PM PAINT POURER Clinical Support Department of Nutrition and Diabetes Education in [place], [place] [address] [place] [phone] Raquel Mancuso M.D. Wolf, Sophia, RAFAELN, LD Dumping Syndrome 04/15/2024 2:00 PM PAINT POURER Comprehensive Visit Department of Dermatology in [place], [place] [address] [place] [phone] Chana Delacruz M.D. Lesion Skin Ear Discharge Disposition: Home or Self Care 04/15/2024 11:30 AM PAINT POURER Office Visit Division of Endocrinology in [place], [place] [address] [place] [phone] Raquel Mancuso M.D. Hypoglycemia Level 1 (Primary Dx); Dumping Syndrome 04/15/2024 Ancillary Procedure Department of Dermatology from Last 3 Months Immunizations Immunization Administration Dates Next Due DT, Pediatric 09/26/1986 DTP 05/31/1986, 6,1974,1974,1974 Influenza, Injectable, Quadrivalent 12/12/2014,1 MMR 02/13/1988 Td, adsorbed, preservative f ree, (Adult) Unspecified 10/07/1998 Tdap 05/18/2017,01/18/2008 influenza trivalent LAIV (Na henrry) (2 years through 49 years) 11/27/2008 influenza trivalent vaccine (6 months and older)(PF) 01/24/2008,01/17/2005 Family History Medical History Relation Name Comments Diabetes Father Osbaldo Hyperlipidemia Father Osbaldo Hypertension Father Osbaldo Rheum arthritis Father Osbaldo Stroke Father Osbaldo Alcohol abuse Maternal Grandfather Gene Coronary artery disease Maternal Grandfather Gene quadruple bypass Hyperlipidemia Maternal Grandfather Gene Hypertension Maternal Grandfather Gene Lung cancer Maternal Grandfather Gene asbesto sis Breast cancer Maternal Grandmother Angella Seizures Maternal Grandmother Angella Anxiety disorder Mother Ashlee Depression Mother Ashlee Migraines Mother Ashlee Sleep apnea Mother Ashlee Rheum arthritis Paternal Grandfather Lex Relation Name Status Comments Father Osbaldo Maternal Grandfather Gene Maternal Grandmother Angella Mother Ashlee Paternal Grandfather Lex Social History Tobacco Use Types Packs/Day Years Used Date Smoking Tobacco: Never Smokeless Tobacco: Former Chew Quit: 03/09/2001 Tobacco Cessation:Counseling Given: Not Answered Alcohol Use Standard Drinks/Week Comments Not Currently 0 (1 standard drink = 0.6 oz pur e alcohol) [facility] [employer] Answer Date Recorded In the past 12 months has th e Med ePad, gas, oil, or water [employer] threatened to shut off services in your [...] your living situation today? 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 Gender Identity Male 08/10/2023 6:15 PM CDT Sexual Orientation Straight 08/10/2023 6: 15 PM CDT Last Filed Vital Signs Vital Sign Reading Time Taken Comments Blood Pressure 135/90 03/31/2024 2:44 PM PAINT POURER Pulse 58 03/31/2024 2:44 PM PAINT POURER Temperature 36.3 C (97.3 F) 03/31/2024 12:40 PM PAINT POURER Respiratory Rate 10 03/31/2024 2:44 PM PAINT POURER Oxygen Saturation 95% 03/31/2024 2:44 PM PAINT POURER Inhaled Oxygen Concentration - - Weight 61.5 kg (135 lb 9.3 oz) 04/15/2024 11:23 AM PAINT POURER Height 165.3 cm (5' 5.08) 04/15/2024 11:[address] Body Mass Index 22.51 04/15/2024 11:23 AM PAINT POURER Plan of Treatment Health Maintenance Due Date Last Done Comments CT Colonography 1974 Cologuard 1974 HIV Screening 1974 Hepatitis C Screening 1974 Hepatitis B Vaccines (1 of 3 - 19+ 3-dose series) 1993 COVID-19 Vaccine ( season) 2023 03/06/2021, 06/06/2020, 05/08/2020 Influenza Vaccine (#1) 2023 5, 01/06/2014, 11/27/2008, Additional history exists Pneumococcal vaccine (50+ years) (1 of 1 - PCV) 2024 Zoster Vaccines (1 of 2) 2024 Depression Monitoring (PHQ-9) 08/17/2024 04/19/2024 Lipid (Cholesterol) Screening 04/10/2025 04/10/2020 Colonoscopy 11/29/2025 11/29/2020 Colorectal Cancer Surveillance 11/29/2025 Fasting Glucose for Diabetes Screening 01/18/2027 01/19/2024, 01/19/2024, 08/12/2023, Additional history exists DTaP,Tdap,and Td Vaccines (10 - Td or Tdap) 05/19/2027 05/18/2017, 01/18/2008, 10/07/1998, Additional history exists Depression Monitoring (PHQ-9 for quality tracking) Completed 03/18/2024 IPV Vaccines Aged Out No longer eligi ble based on patient's age to complete this topic Medical Devices Implanted Type Area Carbon Plant Grinder Device Identifier Shelf Expiration Date Model / Serial / Lot Hardware E.G. Pins/Screws/Ro ds-03/09/2019 Implanted:03/2019 (Quantity not on file) Hardware e.g. pins/screws/r ods Neck Procedures Procedure Name Priority Date/Time Associated Diagnosis Comments DERMATOPATHOLOGY Routine 04/15/2024 1:56 PM PAINT POURER Lesion Skin Ear DERMATOLOGY IMAGE EXAM Routine 12:00 AM PAINT POURER GLUCOSE POCT, B STAT 01/19/2024 7:21 AM PAINT POURER from Last 3 Months or Most Recently Relevant to Health Maintenance Results * Dermatopathology (04/15/2024 1:56 PM PAINT POURER) 04/20/2024 3:07 PM PAINT POURER PDRM Report electronically signed by Monica Silverman M.D. 04/20/2024 3:07 PM PAINT POURER PDRM Gross Description Received in formalin labeled with the patient's name, medical record number, and left ear is a 0.3 cm in diameter white skin punchbiopsy excised to a depth of 0.2 cm. No discrete lesion is grossly identified on the skin surface. The specimen is submitted en toto incassette A1. Grossed by ALISHA. 04/20/2024 3:07 PM PAINT POURER PDRM Interpretation FINAL DIAGNOSIS A. Left ear, Skin punch biopsy: Gouty tophus COMMENT Clinical note and clinical photo were reviewed. Digital imaging was used in the diagnostic assessment of this case. A portion of the testing process was performed at [facility] site [id number]. 04/20/2024 3:07 PM PAINT POURER PDRM Skin (Left Ear) 04/15/2024 1 :56 PM PAINT POURER us Chana Delacruz M.D. LAB PATH DERM ORDERABLES Final Result Performing Organization Address [facility]/ZIP Co de Phone Number [facility] [address] [place] [address], [facility] P[facility] [address] [place] [address] 200 [place] [address] * Ears 506-Dermatology Image Exam (04/15/2024 12:00 AM PAINT POURER) Narrative [facility] - 04/15/2024 4:04 PM PAINT POURER This order has been created and auto-finalized to support the import of images acquired without order. The clinical documentation to support these images can be found on the encounter that produced images. us Provider Not In System IMG NON RAD IMAGING PROCE DURES Final Result Performing Organization Address [facility] Co de Phone Number [facility] NA * Glucose, POCT (01/19/2024 7:21 AM PAINT POURER) Glucose, POCT, B 93 70 - 140 mg/dL 01/19/2024 7:26 AM PAINT POURER PCLX Site Venstick 01/19/2024 7:26 AM PAINT POURER PCLX Blood (Blood, Capillary) 01/19/2024 7:21 AM PAINT POURER 01/19/2024 7:21 AM PAINT POURER us Ashwini Garay M.D. LAB POCT ORDERABLES-MANUAL Final Result Performing Organization Address City/[facility] Co de Phone Number POC [facility] [address] [place] [address], [place] PCLX [facility] [address] [place] [address] from Last 3 Months or Most Recently Relevant to Health Maintenance Insurance [employer] [place] [id number] Care Teams Manager Placement Relationship Specialty Start Date End Date Huma Mathur M.D. [address] [place] [phone] PCP - General Family Medicine 02/02/24
--- OUTSIDE RECORDS SUMMARY | 2024-07-11 22:56 | XMS_ITS | Clinical Summary ---
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 Gender Identity Not on file Sexual Orientation Not on file Last Filed Vital Signs Vital Sign Reading Time Taken Comments Blood Pressure 136/95 01/12/2019 1:23 PM SPEEDBOAT OPERATOR Pulse - - Temperature 36.5 C (97.7 F) 01/12/2019 10:44 AM SPEEDBOAT OPERATOR Respiratory Rate 18 01/12/2019 10:44 AM SPEEDBOAT OPERATOR Oxygen Saturation 98% 01/12/2019 10:44 AM SPEEDBOAT OPERATOR Inhaled Oxygen Concentration - - Weight 105.2 kg (232 lb) 01/12/2019 10:44 AM SPEEDBOAT OPERATOR Height 167.6 cm (5' 6) 01/12/2019 10:44 AM SPEEDBOAT OPERATOR Body Mass Index 37.45 01/12/2019 10:44 AM SPEEDBOAT OPERATOR Plan of Treatment Not on file Insurance [employer] Care Teams Cone Machine Feeder Relationship Specialty [place] [address] [place] [address] PCP - General Family Practice 01/12/19
--- OUTSIDE RECORDS SUMMARY | 2024-07-11 22:56 | XMS_ITS | Clinical Summary ---
Author Organization [facility] Address [address] [place] [id number] Care Team Providers Care Facility Worker Name Role Phone Christiano Pooleter Primary Care Provide r Allergies Active Allergy Reactions Criticality Noted Date Comments Penicillins *Unknown - Childhood Rxn 02/24/2020 Medications omeprazole (PRILOSEC) 20 mg Delayed-Release capsule Take 40 mg by mouth once daily before a meal. Active lisinopriL (PRINIVIL; ZESTRIL) 10 mg tablet take 1 tablet (10 mg) by oral route once daily 30 tablet 08/03/2019 3:28 PM CDT 07/29/2019 Active nortriptyline (PAMELOR) 75 mg capsule Take 75 mg by mouth once daily. Active oxyCODONE (ROXICODONE) 5 mg immediate release tabletIndicatio ns:Pilonidal cyst with abscess Take 1-2 tablets by mouth every 4 hours if needed for pain. 8 tablet 02/24/2020 3:28 PM MICROBIOLOGICAL ANALYST 02/24/2020 Active Active Problems Problem Noted Date Diagnosed Date Vestibular migraine 11/19/2016 Social History Tobacco Use Types Packs/Day Years Used Date Smoking Tobacco: Never Smokeless Tobacco: Never Alcohol Use Standard Drinks/Week Comments Yes 0 (1 standard drink = 0.6 oz pur e alcohol) Sex and Gender Information Value Date Recorded Sex Assigned at Not on file Legal Sex Male 6:42 AM MICROBIOLOGICAL ANALYST Gender Identity Not on file Sexual Orientation Not on file Obstetrics History Last Filed Vital Signs Vital Sign Reading Time Taken Comments Blood Pressure 120/73 02/24/2020 3:00 PM MICROBIOLOGICAL ANALYST Pulse 84 02/24/2020 3:00 PM MICROBIOLOGICAL ANALYST Temperature 36.4 C (97.5 F) 02/24/2020 2:07 PM MICROBIOLOGICAL ANALYST Respiratory Rate 16 02/24/2020 3:00 PM MICROBIOLOGICAL ANALYST Oxygen Saturation 95% 02/24/2020 3:00 PM MICROBIOLOGICAL ANALYST Inhaled Oxygen Concentration - - Weight 110 kg (242 lb 8.1 oz) 02/24/2020 11:35 A M MICROBIOLOGICAL ANALYST Height 167.6 cm (5' 6) 02/24/2020 11:35 AM MICROBIOLOGICAL ANALYST Body Mass Index 39.14 02/24/2020 11:35 AM MICROBIOLOGICAL ANALYST Plan of Treatment Health Maintenance Due Date Last Done Comments Tdap 1985 Depression screening for age 12+ 1986 HIV for age 15-65 1989 Hepatitis C screening for age 18-79 1992 Tetanus booster 1994 BMI (ht and wt on same day) for age 18+ 09/24/2018 0 09/24/2017 Lipids for age 45-75 05/24/2019 COVID-19 vaccine series ( - 2023- season) 4 Pneumococcal series for age 50+ (1 of 1 - PCV) 025 Zoster (shingles) series for age 50+ (1 of 2) 05/24/19 25 Influenza Vaccine (Season Ended) 2024 Colonoscopy through age 75 11/29/2030 11/29/2020 Procedures Procedure Name Priority Date/Time Associated Diagnosis Comments SCAN-COLONOSCOPY 11/29/2020 10:3 0 AM CDT from Last 3 Months or Most Recently Relevant to Health Maintenance Results * SCAN-COLONOSCOPY (11/29/2020 10:30 AM CDT) Narrative Procedure Note Luis Manuel Field MD - 11/29/2020 9:32 AM CDT [facility] [address], [address], [place] [id number] Patient Name: Hansel Russ Gender: Male Exam Date: 11/29/2020 Visit Number: [id number] Age: 45 Years Date of : 1975 Attending MD: Luis Manuel Field MD Medical Record#: [id number] Procedure: Colonoscopy Indications: Previous adenomatous polyp (TA in 2018) Referring MD: Leonel Murphy MD Primary MD: Buster ESPARZA Medications: Admitting Medications: 0.9% Normal Saline at TKO Intra Procedure Medications: Patient received monitored anesthesia care. Complications: No immediate complications Procedure: An examination of the heart and lungs was performed and found to be withinacceptable limits. . The patient was therefore deemed a reasonablecandidate for endoscopy and sedation. The risks and benefits of the procedure were explained to the patient.After obtaining informed consent, the patient received monitoredanesthesia care and I passed the scope without difficulty via the rectum to the ileum. The appendiceal orificeand ic valve were identified. The scope was retroflexed during theexamination The quality of the prep was good (Dwayne/Gat/4 Bis/MgCit). This was a complete examination throughout the entire colon. Findings: Normal finding. Location - ileum. Polyp location: descending colon. Quantity: 1. Size: 3 mm. Polyp shape:sessile. Maneuver: polypectomy was performed with a cold snare. Removal: complete. Retrieval: complete. Bleeding: none. Anal canal: normal Remainder of the exam is normal. Impression: Colorectal polyp detected on colonoscopy Preliminary Plan: The patient and their physician will receive a copy of the pathologyreport as well as pathology-based recommendations for future screening orsurveillance. Recommendation Comments: Anticipate repeat colonoscopy in 5-7 years depending on pathologyresults. Pathology Results: A: COLON, DESCENDING, POLYP: 1. Tubular adenoma 2. Negative for high grade dysplasia 3. Per the colonoscopy report: a. Polyp size: 3 mm b. Resection: Complete c. Retrieval: Complete MICROSCOPIC A: Performed Electronically signed by: Praneeth Seals MD Interpreted at [facility], [address] [place] [address] Orders Instruction(s)/Education: Instruction/Education Timeframe Assessment Colon Cancer Prevention K63.5 Colon Polyps K63.5 Final Plan: Repeat colonoscopy in 7 years for Polyp surveillance. We will attempt to contact you at appropriate intervals via U.[place]. mail. Wemay not be able to find you or contact you at that time, therefore youshould know that the responsibility for following our recommendation restswith you. If you don't hear from us at the time your procedure is due,please contact our office to schedule an appointment. If your contactinformation should change, please contact our office so that we can updateyour record. _Electronically signed by: Luis Manuel Field MD 11/29/2020 cc: Buster ESPARZA cc: Leonel Murphy MD us Luis Manuel Field MD OTHER Final R esult from Last 3 Months or Most Recently Relevant to Health Maintenance Insurance [place] [id number] Advance Directives * Full Code (Latest Code Status on File) Date Activated Date Inactivated Comments 02/24/2020 11:22 AM 02/24/2020 5:20 PM Question Answer Comments Code Status Discussion: Discussed Care Teams Facility Worker Relationship Specialty [place] [id number] [place] [address] PCP - General Family Practice 04/29/15
[2024-07-11 23:15] LABS: Basophils Absolute Auto 0.05 K/uL (0.00-0.30); Basophils Percent Auto 0.6 % (0.0-3.0); Eosinophils Percent Auto 1.2 % (0.0-7.0); Hematocrit 37.7 % (37.0-53.0); Hemoglobin* 13.3 gm/dL (13.5-17.5); Immature Granulocytes Abs Auto 0.03 K/uL (0.00-0.30); Immature Granulocytes Pct Auto 0.4 %; Mean Corpuscular HGB Conc 35 gm/dL (32-36); Mean Corpuscular Hemoglobin 31 pg (26-34); Mean Corpuscular Volume 89 fL (80-100); Monocytes Percent Auto 5.5 % (0.0-11.0); Neutrophils Percent Auto 81.3 % (42.0-72.0); Platelet Count* 194 K/uL (140-440); RDW Coefficient of Variation % 12.7 % (11.5-15.5); Red Blood Count 4.23 m/uL (4.30-5.90)
[2024-07-11 23:18] LABS: Slide Review Reflex No
[2024-07-11 23:19] LABS: RBC Urine 0-2 (0-2); Squamous Epithelial Cell Urine Few (None-Few); WBC Urine 0-2 (0-5)
[2024-07-11 23:27] LABS: Albumin* 4.5 g/dL (3.3-5.0); Chloride* 106 mmol/L (96-114); Sodium* 138 mmol/L (135-149)
[2024-07-11 23:28] LABS: Potassium* 4.2 mmol/L (3.6-5.1)
[2024-07-11 23:30] LABS: Alanine Aminotransferase* 48 U/L (4-50); Alkaline Phosphatase* 57 U/L (40-150); Anion Gap 9 mEq/L (7-15); Aspartate Amino Transferase* 36 U/L (12-35); Bilirubin Direct* 0.3 mg/dL (0.0-0.5); Bilirubin Total* 1.1 mg/dL (0.1-1.5); Blood Urea Nitrogen* 20 mg/dL (7-30); Calcium* 9.1 mg/dL (8.4-10.6); Carbon Dioxide* 23 mmol/L (20-32); Creatinine* 0.8 mg/dL (0.5-1.5); Est. Creatinine Clearance* 92.14; Estimated Glomerular Filt Rate 108 ml/min; Glucose* 92 mg/dL (60-115); Lipase* 174 U/L (23-300); Total Protein* 7.1 g/dL (6.0-8.3)
[2024-07-12 00:06] VITALS: BP 112/74; PULSE 56; RESP 18; TEMP 36.6; O2SAT 97
== END 2024-07-12 00:23 | disposition home or self-care (01) ==
PROVIDERS: Emergency Provider Family Medicine
DX: K65.4 Sclerosing mesenteritis (principal)
CPT/HCPCS: 36415; 74177; 80048; 80076; 81001; 83690; 83735; 85025; 99283; 99284; 99285; Q9967